=== PATIENT | male | born 1985 | race African-American/Black ===

== ENCOUNTER 2018-04-05 13:20 | Emergency (ER) | payer MEDICAID, MEDICARE ==
[~2018-04-05] VITALS: Ht 167.6 cm; Wt 97.0 kg
[2018-04-05 13:32] VITALS: BP 135/93
== END 2018-04-05 14:46 | disposition home or self-care (01) ==
LOC: ER 13:48
DX: Z48.02 Encounter for removal of sutures (principal)
CPT/HCPCS: 99281

== ENCOUNTER 2018-10-17 10:04 | Emergency (ER) | payer MEDICAID, MEDICARE ==
[~2018-10-17] VITALS: Ht 167.6 cm; Wt 75.0 kg
[2018-10-17 14:47] VITALS: BP 120/72
== END 2018-10-17 14:48 | disposition home or self-care (01) ==
LOC: ER 10:04
DX: B35.3 Tinea pedis (principal); B35.6 Tinea cruris; F31.9 Bipolar disorder, unspecified
CPT/HCPCS: 99283

== ENCOUNTER 2018-10-20 10:56 | Emergency (ER) | payer SELFPAY ==
[~2018-10-20] VITALS: Ht 167.6 cm; Wt 73.0 kg
[2018-10-20 11:27] VITALS: BP 103/56
[2018-10-20] MEDS ORDERED: TRAZ-213 PO (11:31)
[2018-10-20] MEDS ORDERED: DIVA250T4 PO (11:31)
[2018-10-20] MEDS ORDERED: DEXT10TA4 PO (11:31)
== END 2018-10-20 14:18 | disposition home or self-care (01) ==
LOC: ER 14:11
DX: J06.9 Acute upper respiratory infection, unspecified (principal); B34.8 Other viral infections of unspecified site; F31.9 Bipolar disorder, unspecified; Z79.899 Other long term (current) drug therapy
CPT/HCPCS: 99283

== ENCOUNTER → 2018-10-25 | Outpatient (CLI) | payer MEDICAID, MEDICARE ==
[~2018-10-25] MED LIST: DEXT10TA4 PO; DIVA250T4 PO; TRAZ-213 PO
== END | disposition home or self-care (01) ==
LOC: RAD 11:26
DX: M25.561 Pain in right knee (principal); M25.562 Pain in left knee
CPT/HCPCS: 73562

== ENCOUNTER 2019-03-02 11:03 | Emergency (ER) | payer MEDICARE, MEDICAID ==
[~2019-03-02] VITALS: Ht 167.6 cm; Wt 73.0 kg
[~2019-03-02 11:03] MED LIST changes: -TRAZ-213 PO; +TRAZ-252 PO
[2019-03-02 14:27] VITALS: BP 115/68
== END 2019-03-02 14:28 | disposition home or self-care (01) ==
LOC: ER 11:03
DX: J01.90 Acute sinusitis, unspecified (principal); J06.9 Acute upper respiratory infection, unspecified; Z79.899 Other long term (current) drug therapy
CPT/HCPCS: 71045; 87430; 99284

== ENCOUNTER 2019-06-24 21:34 | Emergency (ER) | payer MEDICARE, MEDICAID ==
[~2019-06-24] VITALS: Ht 167.6 cm; Wt 75.0 kg
[2019-06-24] MEDS ORDERED: ACETAMINOPHEN 325MG TABLET PO STA (23:27)
[2019-06-24] MEDS ORDERED: FAMOTIDINE 20MG TABLET PO ONE (23:30)
[2019-06-25 01:34] VITALS: BP 111/52
== END 2019-06-25 01:51 | disposition home or self-care (01) ==
LOC: ER 21:34
DX: J06.9 Acute upper respiratory infection, unspecified (principal); K21.9 Gastro-esophageal reflux disease without esophagitis
CPT/HCPCS: 71045; 87070; 87430; 99284

== ENCOUNTER 2019-07-07 12:45 | Emergency (ER) | payer MEDICAID, OTHER ==
[~2019-07-07] VITALS: Ht 172.7 cm; Wt 75.0 kg
[2019-07-07] MEDS ORDERED: ACETAMINOPHEN 325MG TABLET PO ONE (13:45)
[2019-07-07 15:05] VITALS: BP 145/79
== END 2019-07-07 15:41 | disposition home or self-care (01) ==
LOC: ER 12:45
DX: M79.672 Pain in left foot (principal)
CPT/HCPCS: 73630; 99283

== ENCOUNTER 2019-07-30 13:26 | Emergency (ER) | payer MEDICARE, MEDICAID ==
[~2019-07-30] VITALS: Ht 167.6 cm; Wt 75.0 kg
[2019-07-30 13:49] VITALS: BP 137/80
== END 2019-07-30 15:02 | disposition home or self-care (01) ==
LOC: ER 13:26
DX: B35.3 Tinea pedis (principal); R61 Generalized hyperhidrosis; R03.0 Elevated blood-pressure reading, without diagnosis of hypertension; F12.90 Cannabis use, unspecified, uncomplicated
CPT/HCPCS: 82962; 99282

== ENCOUNTER 2019-09-03 13:22 | Emergency (ER) | payer OTHER ==
[~2019-09-03] VITALS: Ht 167.6 cm; Wt 79.0 kg
[2019-09-03 15:18] VITALS: BP 121/68
== END 2019-09-03 15:19 | disposition home or self-care (01) ==
LOC: ER 13:22
DX: R05 Cough (principal); F12.90 Cannabis use, unspecified, uncomplicated
CPT/HCPCS: 71046; 99283

== ENCOUNTER 2020-01-04 12:33 | Emergency (ER) | payer MEDICARE, MEDICAID ==
[~2020-01-04] VITALS: Ht 167.6 cm; Wt 80.0 kg
[2020-01-04] MEDS ORDERED: ONDANSETRON 4MG ODT PO ONE (14:15)
[2020-01-04 16:58] LABS: BASOPHILS % 0.6 % (0.0-2.0); EOSINOPHILS % 0.6 % (0.0-5.0); HEMATOCRIT. 49.5 % (42.0-52.0); HEMOGLOBIN. 16.8 g/dL (14.0-18.0); LYMPHOCYTES % 14.9 % (20.0-50.0); MEAN CORPUSCULAR HEMOGLOBIN 32.9 pg (28.0-32.0); MEAN CORPUSCULAR VOLUME 97.1 fL (80.0-94.0); MEAN PLATELET VOLUME 9.1 fl (7.4-10.4); MONOCYTES % 4.4 % (2.0-8.0); NEUTROPHILS % 79.5 % (40.0-76.0); PLATELET 125 x1000/uL (130-400); RED CELL DISTRIBUTION WIDTH 12.9 % (11.6-14.6)
[2020-01-04 17:09] LABS: CHLORIDE 108 mEq/L (98-107)
[2020-01-04 17:28] VITALS: BP 122/80
== END 2020-01-04 17:30 | disposition home or self-care (01) ==
LOC: ER 12:33
DX: R11.2 Nausea with vomiting, unspecified (principal); F12.10 Cannabis abuse, uncomplicated; Z98.890 Other specified postprocedural states
CPT/HCPCS: 36415; 80048; 85025; 93005; 99284; Q0162

== ENCOUNTER 2020-04-23 12:00 | Emergency (ER) | payer OTHER ==
[~2020-04-23] VITALS: Ht 172.7 cm; Wt 77.0 kg
[2020-04-23] MEDS ORDERED: IBUPROFEN 600MG TABLET PO STA (12:33)
[2020-04-23 12:54] LABS: BASOPHILS % 0.4 % (0.0-2.0); EOSINOPHILS % 1.2 % (0.0-5.0); HEMATOCRIT. 45.3 % (42.0-52.0); HEMOGLOBIN. 15.6 g/dL (14.0-18.0); LYMPHOCYTES % 21.3 % (20.0-50.0); MEAN CORPUSCULAR HEMOGLOBIN 33.3 pg (28.0-32.0); MEAN CORPUSCULAR VOLUME 96.7 fL (80.0-94.0); MEAN PLATELET VOLUME 8.3 fl (7.4-10.4); MONOCYTES % 6.5 % (2.0-8.0); NEUTROPHILS % 70.6 % (40.0-76.0); PLATELET 144 x1000/uL (130-400); RED BLOOD CELL COUNT 4.68 mill/uL (4.7-6.1); RED CELL DISTRIBUTION WIDTH 12.8 % (11.6-14.6)
[2020-04-23 12:57] LABS: CHLORIDE 106 mEq/L (98-107)
[2020-04-23] MEDS ORDERED: IBUP-2029 MT (13:32)
[2020-04-23 14:16] VITALS: BP 111/79
== END 2020-04-23 14:19 | disposition home or self-care (01) ==
LOC: ER 12:00
DX: R07.89 Other chest pain (principal); R03.0 Elevated blood-pressure reading, without diagnosis of hypertension; F31.9 Bipolar disorder, unspecified
CPT/HCPCS: 36415; 71045; 80053; 85025; 93005; 99285

== ENCOUNTER 2021-08-09 15:56 | Emergency (ER) | payer MEDICARE, OTHER ==
[~2021-08-09] VITALS: Ht 167.6 cm; Wt 68.0 kg
[~2021-08-09 15:56] MED LIST changes: +IBUP-2029 MT; +IBUP-2030 MT; +T3 PO
[2021-08-09 19:00] VITALS: BP 108/66
[2021-08-09] MEDS ORDERED: HYDR28.485 RC (19:10)
[2021-08-09] MEDS ORDERED: CEPH500C2 MT (19:13)
== END 2021-08-09 19:00 | disposition home or self-care (01) ==
LOC: ER 15:56
DX: L03.113 Cellulitis of right upper limb (principal); L30.9 Dermatitis, unspecified; F31.9 Bipolar disorder, unspecified; Z79.899 Other long term (current) drug therapy
CPT/HCPCS: 73130; 99283

== ENCOUNTER 2021-08-22 10:39 | Emergency (ER) | payer MEDICARE, OTHER ==
[~2021-08-22] VITALS: Ht 167.6 cm; Wt 65.0 kg
[~2021-08-22 10:39] MED LIST changes: +CEPH500C2 MT; +HYDR28.485 RC
[2021-08-22] MEDS ORDERED: IBUPROFEN 600MG TABLET PO ONE (13:00)
[2021-08-22 14:04] VITALS: BP 123/74
== END 2021-08-22 14:06 | disposition home or self-care (01) ==
LOC: ER 10:55
DX: T78.40XA Allergy, unspecified, initial encounter (principal); M79.89 Other specified soft tissue disorders; L29.9 Pruritus, unspecified; X58.XXXA Exposure to other specified factors, initial encounter
CPT/HCPCS: 73130; 99283

== ENCOUNTER 2021-09-11 20:46 | Emergency (ER) | payer MEDICARE, OTHER ==
[~2021-09-11] VITALS: Ht 167.6 cm; Wt 69.0 kg
[2021-09-11 21:23] VITALS: BP 150/110
[2021-09-12] MEDS ORDERED: BO1 TP (00:24)
[2021-09-12] MEDS ORDERED: DIPH103G TP (00:24)
[2021-09-12] MEDS ORDERED: BACITRACIN ZINC OINT UDPKT TOP ONE (00:30)
== END 2021-09-12 | disposition home or self-care (01) ==
LOC: ER 20:46
DX: L29.9 Pruritus, unspecified (principal); M79.642 Pain in left hand; M79.641 Pain in right hand; Z87.81 Personal history of (healed) traumatic fracture
CPT/HCPCS: 99282

== ENCOUNTER 2021-10-04 12:54 | Emergency (ER) | payer MEDICARE, OTHER ==
[~2021-10-04] VITALS: Ht 167.6 cm; Wt 70.0 kg
[~2021-10-04 12:54] MED LIST changes: +BO1 TP; +DIPH103G TP
[2021-10-04] MEDS ORDERED: HYDROCODONE/ACETAMINOPHEN 5/325MG TABLET PO STA (14:09)
[2021-10-04] MEDS ORDERED: PIPERACILLIN/TAZ 3.375G PREMIX 50 ML IV NR (15:50)
[2021-10-04] MEDS: VANCOMYCIN 1G PREMIX 200 ML IV NR (16:05)
[2021-10-04 16:10] LABS: BASOPHILS % 0.2 % (0.0-2.0); EOSINOPHILS % 1.2 % (0.0-5.0); HEMATOCRIT. 38.8 % (42.0-52.0); HEMOGLOBIN. 13.2 g/dL (14.0-18.0); LYMPHOCYTES % 7.8 % (20.0-50.0); MEAN CORPUSCULAR HEMOGLOBIN 32.5 pg (28.0-32.0); MEAN CORPUSCULAR VOLUME 95.7 fL (80.0-94.0); MEAN PLATELET VOLUME 7.1 fl (7.4-10.4); MONOCYTES % 5.3 % (2.0-8.0); NEUTROPHILS % 85.5 % (40.0-76.0); PLATELET 283 x1000/uL (130-400); RED BLOOD CELL COUNT 4.05 mill/uL (4.7-6.1); RED CELL DISTRIBUTION WIDTH 12.4 % (11.6-14.6)
[2021-10-04 16:20] LABS: CHLORIDE 104 mEq/L (98-107)
[2021-10-04 16:30] LABS: CLARITY URINE CLEAR (CLEAR); COLOR URINE YELLOW (YELLOW); KETONES URINE TRACE (NEGATIVE); LEUKOCYTE ESTERASE URINE NEGATIVE (NEGATIVE); NITRITE URINE NEGATIVE (NEGATIVE); OCCULT BLOOD URINE NEGATIVE (NEGATIVE); PROTEIN URINE TRACE (NEGATIVE)
[2021-10-04 18:00] VITALS: BP 126/74
[2021-10-04] MEDS ORDERED: TETANUS, DIPHTHERIA, PERTUSSIS VAC/PF 0.5ML (>10YR OLD) IM ONE ×2 (18:15→20:30)
[2021-10-04] MEDS ORDERED: BACITRACIN ZINC OINT UDPKT TOP ONE (18:15)
[2021-10-04] MEDS ORDERED: LIDOCAINE HCL/EPINEPHRINE 1%-EPI 1:100,000 20 ML VIAL INFIL ONE (18:15)
[2021-10-04] MEDS ORDERED: LIDOCAINE HCL/EPINEPHRINE 1%-EPI 1:100,000 30 ML VIAL INFIL ONE (18:30)
[2021-10-04] MEDS ORDERED: LIDOCAINE HCL/EPINEPHRINE 1%-EPI 1:100,000 30 ML VIAL INFIL NR (18:30)
[2021-10-04] MEDS ORDERED: AMOX1TAB16 MT (19:41)
[2021-10-04] MEDS ORDERED: IBUP-2029 MT (19:41)
[2021-10-04] MEDS ORDERED: BACITRACIN ZINC OINT UDPKT TOP NR (20:30)
== END 2021-10-04 20:49 | disposition home or self-care (01) ==
LOC: ER 12:54
DX: S02.2XXA Fracture of nasal bones, initial encounter for closed fracture (principal); S02.40CA Maxillary fracture, right side, initial encounter for closed fracture; L02.01 Cutaneous abscess of face; Y08.89XA Assault by other specified means, initial encounter; Y93.89 Activity, other specified; Y92.89 Other specified places as the place of occurrence of the external cause; Y99.8 Other external cause status; F31.9 Bipolar disorder, unspecified; Z79.899 Other long term (current) drug therapy
CPT/HCPCS: 36415; 70486; 80053; 81003; 85025; 87040; 90471; 90715; 96365; 96375; 99284; J2543; J3370; J3490

== ENCOUNTER 2022-06-13 20:36 | Emergency (ER) | payer MEDICAID, OTHER ==
[~2022-06-13] VITALS: Ht 167.6 cm; Wt 72.0 kg
[~2022-06-13 20:36] MED LIST changes: +AMOX1TAB16 MT
[2022-06-13 22:45] VITALS: BP 163/99
[2022-06-13] MEDS ORDERED: KETOROLAC 60MG/2ML VIAL IM ONE (22:45)
[2022-06-13] MEDS ORDERED: IBUP-2029 MT (23:57)
== END 2022-06-14 04:00 | disposition home or self-care (01) ==
LOC: ER 20:36
DX: M25.561 Pain in right knee (principal); M25.562 Pain in left knee; Z79.899 Other long term (current) drug therapy
CPT/HCPCS: 73560; 96372; 99283; J1885

== ENCOUNTER 2022-12-28 12:36 | Emergency (ER) | payer MEDICAID ==
[~2022-12-28] VITALS: Ht 172.7 cm; Wt 91.0 kg
[2022-12-28 12:43] VITALS: O2SAT 97
[2022-12-28] MEDS ORDERED: ACETAMINOPHEN 325MG TABLET PO ONE (13:30)
[2022-12-28 14:55] VITALS: BP 124/87; PULSE 57; RESP 18; TEMP 97.9
== END 2022-12-28 14:56 | disposition home or self-care (01) ==
LOC: ER 12:36
DX: M79.674 Pain in right toe(s) (principal); Z88.8 Allergy status to other drugs, medicaments and biological substances; Z88.9 Allergy status to unspecified drugs, medicaments and biological substances; Z88.6 Allergy status to analgesic agent; Z79.899 Other long term (current) drug therapy
CPT/HCPCS: 73660; 99283

== ENCOUNTER 2024-03-13 19:37 | Emergency (ER) | payer MEDICARE, OTHER ==
[~2024-03-13] VITALS: Ht 167.6 cm; Wt 79.3 kg
[~2024-03-13 19:37] MED LIST changes: -AMOX1TAB16 MT; -BO1 TP; -CEPH500C2 MT; +CYAN-50 MT; -DEXT10TA4 PO; -DIPH103G TP; -DIVA250T4 PO; -HYDR28.485 RC; -IBUP-2029 MT; -IBUP-2030 MT; +LAMO25TA9 PO; +LIDO35.421 TP; +MELO-104 PO; +PANT40TA51 MT; +QUET50TA23 PO; +SUCR1TAB30 MT; -T3 PO; +TAMS-11 PO; -TRAZ-252 PO
[2024-03-13 19:43] VITALS: O2SAT 98
[2024-03-13] MEDS ORDERED: CYAN-50 MT (20:44)
[2024-03-13] MEDS ORDERED: PANT40TA51 MT (20:44)
[2024-03-13] MEDS ORDERED: SUCR1TAB30 MT (20:44)
[2024-03-13 20:54] VITALS: BP 120/87; PULSE 66; RESP 18; TEMP 36.9; O2SAT 100
== END 2024-03-13 20:56 | disposition home or self-care (01) ==
LOC: ER 19:37
DX: K27.9 Peptic ulcer, site unspecified, unspecified as acute or chronic, without hemorrhage or perforation (principal); F31.9 Bipolar disorder, unspecified; F20.9 Schizophrenia, unspecified; Z79.899 Other long term (current) drug therapy; Z87.891 Personal history of nicotine dependence
CPT/HCPCS: 99281